=== PATIENT | male | born 1990 | race Caucasian/White ===

== ENCOUNTER 2020-08-20 16:26 | Inpatient (IN) | payer MEDICAID, SELFPAY ==
[2020-08-20 16:33] VITALS: BMI 30.7
[2020-08-20 16:34] VITALS: BP 125/82; PULSE 68; RESP 16; TEMP 36.3; O2SAT 98
[2020-08-20 21:13] VITALS: BP 104/64; PULSE 89; RESP 17; TEMP 36.7; O2SAT 98
[2020-08-20] MEDS: sulfamethoxazole-trimeth DS 160-800 mg Tablet 1 TAB PO (21:39)
[2020-08-21 06:00] VITALS: BP 115/77; PULSE 71; RESP 16; TEMP 36.7; O2SAT 99
[2020-08-21] MEDS: sulfamethoxazole-trimeth DS 160-800 mg Tablet 1 TAB PO ×2 (09:51→21:51)
[2020-08-21 14:00] VITALS: BP 107/67; PULSE 79; RESP 16; TEMP 36.9; O2SAT 99
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
[2020-08-21] MEDS: escitalopram 10 mg Tablet PO (15:09)
[2020-08-21 20:29] VITALS: BP 113/74; PULSE 85; RESP 20; TEMP 36.7; O2SAT 98
[2020-08-22 06:00] VITALS: BP 111/74; PULSE 60; RESP 17; TEMP 36.6; O2SAT 97
[2020-08-22] MEDS: escitalopram 10 mg Tablet PO (08:36)
[2020-08-22] MEDS: sulfamethoxazole-trimeth DS 160-800 mg Tablet 1 TAB PO ×2 (08:36→22:06)
[2020-08-22 13:51] VITALS: BP 117/75; PULSE 72; RESP 16; TEMP 37.1; O2SAT 97
[2020-08-22 13:53] VITALS: BP 117/75; PULSE 72; RESP 16; TEMP 37.1; O2SAT 97
--- NOTE | 2020-08-22 16:56 | PM.NPN ---
Subjective NPU Subjective: Interval history: Patient presents today reporting that he had been on Lexapro 20 for some time and feeling that the 10 is not really going to do what he needs to be well. Additionally he feels his anxiety is really bad and wanted to try something for that. We discussed the benefits alternatives of increasing his Lexapro as well as starting BuSpar 15 mg p.o. twice daily and he understood and agreed to proceed as is documented in this note. Mental Status Exam MSE Comments: This is an overweight versus obese brown skinned male in hospital scrubs with adequate grooming and limited eye contact. No abnormal movements except for psychomotor retardation. More cooperative with exam in mild distress. Speech was decreased volume but normal rate. Mood described as depressed and anxious, affect subdued. Thought process organized. Thought content: Patient denied homicidal ideation but endorsed suicidal ideation, there were no delusions reported or noted, he denied any auditory or visual hallucinations. Attention and concentration were limited and memory appeared unreliable but none were formally tested. He is alert and oriented x3. Insight and judgment appeared limited and impulse control appears limited. Vitals/I&O/Wt Last Vital Signs Temp 97.3 F L 08/22/20 21:31 Pulse 71 08/22/20 21:31 Resp 16 08/22/20 21:31 BP 116/22 08/22/20 21:31 Pulse Ox 95 08/22/20 21:31 A&P Additional A&P Information (1) Depression: (2) Anxiety: (3) Cannabis abuse: (4) Methamphetamine abuse: Additional A&P Information This is a 30-year-old male with a long history of trauma, addiction instability in his psychosocial circumstances who presents off of medication open to medication trial. 1. Continue current medication. Increase Lexapro to 20 mg p.o. every morning start BuSpar 15 mg p.o. twice daily. 2. Continue every 15 minute checks for safety. 3. Encourage individual, group and milieu therapies. 4. Encourage sober living treatment after discharge at the highest level of care to which he is willing to commit. Involuntary Hold Information 96 Hour Hold: 96 Hour Involuntary Admission: No Attestations NPU Medical Necessity Statement*: Inpatient hospitalization is medically necessary and the clinically appropriate intervention at this time. We will monitor medications and make changes as indicated. Likely length of stay 2-4 days. Coding Level of Care Code Acute Clinical Faculty for Brooke Leroy
[2020-08-22 21:31] VITALS: BP 116/22; PULSE 71; RESP 16; TEMP 36.3; O2SAT 95
[2020-08-22] MEDS: trazodone 50 mg Tablet PO (21:55)
[2020-08-22] MEDS: acetaminophen 325 mg Tablet 650 MG PO (21:55)
[2020-08-22] MEDS: hyDROXYzine 25 mg Capsule 50 MG PO (21:55)
--- NOTE | 2020-08-22 21:55 | PC.NURSE ---
Patient requested meds for sleep and anxiety. Trazodone 50 mg PO, Vistaril 50 mg PO given.
[2020-08-23 06:00] VITALS: BP 106/67; PULSE 82; RESP 17; TEMP 36.7; O2SAT 98
[2020-08-23] MEDS: escitalopram 10 mg Tablet 20 MG PO (08:31)
[2020-08-23] MEDS: sulfamethoxazole-trimeth DS 160-800 mg Tablet 1 TAB PO (08:31)
[2020-08-23] MEDS: BuSPIRONE 10 mg Tablet 15 MG PO (08:32)
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
[2020-08-23] MEDS: nicotine 2 mg Gum BUCCAL (11:38)
[2020-08-23 11:54] VITALS: BP 106/67; PULSE 82; RESP 17; TEMP 36.7; O2SAT 98
== END 2020-08-23 13:56 | disposition home or self-care (01) | DRG 881 ==
PROVIDERS: Admitting Provider Psychiatry & Neurology Psychiatry; Visit Provider Psychiatry & Neurology Psychiatry
DX: F32.9 Major depressive disorder, single episode, unspecified (principal); R45.851 Suicidal ideations; F41.9 Anxiety disorder, unspecified; F12.10 Cannabis abuse, uncomplicated; F15.10 Other stimulant abuse, uncomplicated; F17.210 Nicotine dependence, cigarettes, uncomplicated; Z62.810 Personal history of physical and sexual abuse in childhood; Z62.811 Personal history of psychological abuse in childhood; Z59.0 Homelessness